=== PATIENT | female | born 1970 | race Two or more races ===

== ENCOUNTER 2020-09-05 16:13 | Emergency (ER) | payer MEDICAID, MEDICARE ==
[~2020-09-05] VITALS: Ht 157.5 cm; Wt 133.5 kg
[2020-09-05] MEDS ORDERED: IRON (16:34)
[2020-09-05] MEDS ORDERED: LANTUS (16:34)
[2020-09-05] MEDS ORDERED: HUMALOG (16:34)
[2020-09-05] MEDS ORDERED: LOVASTATIN (16:34)
[2020-09-05] MEDS ORDERED: HYDROcodone/APAP 5/325 TABLET ONE (16:39)
[2020-09-05] MEDS ORDERED: HYDROcodone/APAP 5/325 TABLET PO ONE (17:00)
--- NOTE | 2020-09-05 17:01 | NUR ---
PT UPRIGHT ON GURNEY AWAKE & C/O PAIN, MEDICATED PER EMAR, RESPONDS APPROP TO STAFF, COMFORT MEASURES PROVIDED, AT BS, CALL LIGHT WITHIN REACH.
--- NOTE | 2020-09-05 18:41 | NUR ---
Patient given discharge instructions and they have confirmed that they understand the instructions. Patient to d/c desk via wheelchair with significant other.
[2020-09-05 18:42] VITALS: BP 161/107
== END 2020-09-05 18:43 | disposition home or self-care (01) ==
LOC: ED 17:57
DX: S93.491A Sprain of other ligament of right ankle, initial encounter (principal); E11.9 Type 2 diabetes mellitus without complications; X50.1XXA Overexertion from prolonged static or awkward postures, initial encounter; Y93.01 Activity, walking, marching and hiking; Y92.59 Other trade areas as the place of occurrence of the external cause; Y99.8 Other external cause status
CPT/HCPCS: 99283